=== PATIENT | female | born 1930 | race Caucasian/White ===

== ENCOUNTER → 2018-05-29 | Outpatient (CLI) | payer MEDICARE ==
--- NOTE | 2018-05-29 15:03 | RAD ---
DATE: 05/29/2018 EXAM: DIGITAL DIAGNOSTIC BILATERAL, BREAST RIGHT HISTORY: Right breast lump, previous breast implants COMPARISON: None available This study was interpreted with the benefit of Computerized Aided Detection (CAD). Breast Density: HETERO The breast parenchyma is heterogenously dense, which could reduce sensitivity of mammography. Breast parenchyma level C. FINDINGS: A BB was placed over the area of palpable concern at the 11-12:00 location on the right. Routine and implant exclusion views were obtained in CC and MLO projections. MLO tomosynthesis imaging of the right breast was also performed. The bilateral breast implants demonstrate extensive capsular calcifications. This produces considerable difficulty in performance of the implant exclusion views limiting mammographic evaluation. The area of palpable concern in the superior aspect of the right breast corresponds to a 2 cm, slightly lobulated nodule lying directly adjacent to the superior aspect of the breast implant as seen on the MLO and straight mediolateral view. This cannot be visualized in the CC projection due to positioning difficulties. No other breast mass is seen. No suspicious microcalcifications are evident. Right breast ultrasound, 05/29/2018: A targeted ultrasound exam was performed of the area of palpable concern. At the 11:30 location in the right breast approximately 8 cm in the nipple there is a 12 x 16 x 18 mm lobulated slightly hypoechoic nodule. Its internal echoes are mildly heterogeneous with internal color flow. This is a solid lesion lying directly adjacent to the calcified capsule of the breast implant. IMPRESSION: 1. Extensive capsular calcification involving both breast implants. 2. Solid nodule at the 11-12:00 location the right breast lying directly adjacent to the breast implant. Breast malignancy is a possibility and biopsy is suggested. Note: The findings were given to the patient at the time of the exam by the operating room surgical technologist. The patient is aware of our recommendation for biopsy and will follow-up with the ordering physician. BI-RADS CATEGORY: 4 SUSPICIOUS ABNORMALITY- BIOPSY SHOULD BE CONSIDERED RECOMMENDED FOLLOW-UP: BIO BIOPSY RECOMMENDED PQRS compliance statement: Patient information was entered into a reminder system with a target due date for the next mammogram. Mammography is a sensitive method for finding small breast cancers, but it does not detect them all and is not a substitute for careful clinical examination. A negative mammogram does not negate a clinically suspicious finding and should not result in delay in biopsying a clinically suspicious abnormality. "Our facility is accredited by the [employer] Mammography Program."
== END | disposition home or self-care (01) ==
LOC: MAMMO 12:32
PROVIDERS: ATTEND Specialist
DX: N63.11 Unspecified lump in the right breast, upper outer quadrant (principal)
CPT/HCPCS: 76641; 77066

== ENCOUNTER 2021-02-09 09:15 | Emergency (ER) | payer MEDICARE ==
[~2021-02-09] VITALS: Ht 157.5 cm; Wt 56.0 kg
--- NOTE | 2021-02-09 10:39 | PHYS DOC ---
Past History Past Surgical History: Cancer Surgery Additional Past Surgical Histo: Breast CA, wrist surgery Alcohol Use: Rarely General Adult EDM: Chief Complaint: MECHANICAL FALL HPI: HPI: Patient is a 89-year-old female coming in after a fall. Patient states she was trying to hurry up some steps while carrying things in both arms and fell forward. Is complaining of pain and swelling in her left knee and right elbow. Has a small cut to right elbow. Denies any head history or loss of consciousness. Review of Systems: Review of Systems: All other systems within normal limits except for as noted in the HPI Allergies: Allergies: Allergies Coded Allergies Type Severity Reaction Last Updated Verified Penicillins Allergy Unknown 02/09/21 Yes Sulfa (Sulfonamide Antibiotics) Allergy Unknown 02/09/21 Yes clonidine Allergy Unknown 02/09/21 Yes lansoprazole Allergy Unknown 02/09/21 Yes metformin Allergy Unknown 02/09/21 Yes metoprolol Allergy Unknown 02/09/21 Yes tetracycline Allergy Unknown 02/09/21 Yes Uncoded Allergies Type Severity Reaction Last Updated Verified TIAZIN Allergy Unknown 02/09/21 Physical Exam: PE: Constitutional: Well developed, well nourished, no acute distress, non-toxic appearance. [] HENT: Normocephalic, atraumatic, bilateral external ears normal, nose normal. [] Eyes: PERRLA, conjunctiva normal, no discharge. [] Neck: No rigidity, supple, no stridor. [] Cardiovascular: Regular rate and rhythm, brisk cap refill [] Lungs & Thorax: Non labored symmetric respirations, no tachypnea or respiratory distress [] Abdomen: Soft, nondistended. Skin: Warm, dry, no erythema, no rash. 0.5 cm laceration to right elbow [] Back: Unremarkable Extremities: No deformities, range of motion grossly intact, no lower extremity edema. Tenderness and swelling to medial left knee [] Neurologic: Alert and oriented X 3, no focal deficits noted. [] Psychologic: Affect normal, judgement normal, mood normal. [] Current Patient Data: Vital Signs: Vital Signs Date Time Temp Pulse Resp B/P (MAP) Pulse Ox O2 Delivery O2 Flow Rate FiO2 02/09/21 09:26 98.2 70 18 159/79 96 Room Air EKG: EKG: [] Radiology/Procedures: Radiology/Procedures: Laceration superficial and small, closed with Dermabond and Steri-Strips [] Heart Score: C/O Chest Pain: No Risk Factors: Risk Factors: DM, Current or recent (<one month) smoker, HTN, HLP, family history of CAD, obesity. Risk Scores: Score 0 - 3: 2.5% MACE over next 6 weeks - Discharge Home Score 4 - 6: 20.3% MACE over next 6 weeks - Admit for Clinical Observation Score 7 - 10: 72.7% MACE over next 6 weeks - Early Invasive Strategies Course & Med Decision Making: Course & Med Decision Making Pertinent Labs and Imaging studies reviewed. (See chart for details) [] Dragon Disclaimer: Dragon Disclaimer: This electronic medical record was generated, in whole or in part, using a voice recognition dictation system. Departure Departure: Impression: Primary Impression: Fall Disposition: HOME / SELF CARE / HOMELESS Condition: STABLE Referrals: CHAGO FERRELL MD (PCP) Patient Instructions: Tissue Adhesive Wound Care ELGIN PHIPPS MD Feb 09, 2021 10:39
--- NOTE | 2021-02-09 10:44 | RAD ---
Exam Date: 02/09/2021 10:00 AM XR KNEE _3 [id number] Indication: Reason: fall / Spl. Instructions: / History: . FINDINGS/ IMPRESSION: Small osteophytes are noted. Chondrocalcinosis is seen in the medial and lateral compartments. No acute fracture or dislocation. Alignment and joint spaces are maintained. There is a joint effus ion. Vascular calcifications are noted. Electronically signed by: Jean Rey MD (02/09/2021 10:42 AM) [id number]
[2021-02-09 10:45] VITALS: BP 152/66
--- NOTE | 2021-02-09 10:49 | RAD ---
Exam Date: 02/09/2021 10:00 AM XR ELBOW COMPLETE_RIGHT 3+ VIEWS Indication: Reason: fall / Spl. Instructions: / History: . FINDINGS/ IMPRESSION: There is a joint effusion. No definite acute fracture or dislocation. Alignment and joint spaces ar e maintained. The soft tissues are within normal limits. If clinical symptoms persist, consider fol low-up radiographs in 710 days as occult fractures may be more visible at that time. Electronically signed by: Jean Rey MD (02/09/2021 10:47 AM) [id number]
== END 2021-02-09 10:45 | disposition home or self-care (01) ==
LOC: ER 09:15
DX: S51.011A Laceration without foreign body of right elbow, initial encounter (principal); M25.562 Pain in left knee; Z88.0 Allergy status to penicillin; Z88.2 Allergy status to sulfonamides; Z88.8 Allergy status to other drugs, medicaments and biological substances; W10.8XXA Fall (on) (from) other stairs and steps, initial encounter; Y93.89 Activity, other specified; Y92.89 Other specified places as the place of occurrence of the external cause; Y99.8 Other external cause status
CPT/HCPCS: 12001; 73080; 73562; 99284